=== PATIENT | female | born 1975 | race African-American/Black ===

== ENCOUNTER 2016-05-03 22:28 | Emergency (ER) | payer OTHER ==
[~2016-05-03] VITALS: Ht 162.6 cm; Wt 100.4 kg
[2016-05-03 22:55] LABS: HEMATOCRIT 41.3 % (36.0-46.0); MCH 30.7 PG (29.0-34.0); MCHC 33.4 G/DL (30.0-36.0); MCV 91.8 FL (83-99); MEAN PLAT.VOLUME 8.8 uM^3 (9.5-12.4); PLATELET COUNT 329 K/uL (156-360); RBC DIS.WIDTH-CV 13.1 % (11.8-14.6); RBC DIS.WIDTH-SD 44.1 % (39-53); WHITE BLOOD COUNT 9.2 K/uL (4.1-10.2)
[2016-05-03 23:03] LABS: CHLORIDE 104 mEq/L (99-109); POTASSIUM 2.6 mEq/L (3.7-5.4); SODIUM 142 mEq/L (136-147)
[2016-05-03 23:05] LABS: GLUCOSE 161 mg/dL (70-99)
[2016-05-03 23:06] LABS: ANION GAP 15 MEQ/L (2-14)
[2016-05-03 23:08] LABS: SERUM ETHYL ALCOHOL 459 mg/dL
[2016-05-03 23:10] LABS: UREA NITROGEN (BUN) 4 mg/dL (9-23)
[2016-05-03 23:17] LABS: QUANTITATIVE HCG < 4.0 MIU/ML
[2016-05-03 23:23] LABS: GFR ESTIMATE (CALCULATED) > 59 mL/min/
[2016-05-04 01:17] LABS: COCAINE NEGATIVE (150 ng/mL); METHAMPHETAMINE NEGATIVE (500 ng/mL); OPIATES (MORPHINE) PRESUMPTIVE POSITIVE (100 ng/mL); PHENCYCLIDINE NEGATIVE (25 ng/mL); THC CANNABINOIDS NEGATIVE (50 ng/mL)
[2016-05-04 01:18] LABS: ADD MEDTOX COMMENT Y; AMPHETAMINE PRESUMPTIVE POSITIVE (500 ng/mL); BARBITURATES NEGATIVE (200 ng/mL); BENZODIAZEPINES NEGATIVE (150 ng/mL); INTERNAL CONTROLS VALID? YES; METHADONE NEGATIVE (200 ng/mL); OXYCODONE NEGATIVE (100 ng/mL); PROPOXYPHENE NEGATIVE (300 ng/mL); TRICYCLIC ANTIDEPRESSANTS NEGATIVE (300 ng/mL)
[2016-05-04 04:19] LABS: AMPHETAMINES QUANT VALUE 0 NG/ML; OPIATES QUANTITATIVE VALUE 0 NG/ML
[2016-05-04 04:45] LABS: MAGNESIUM 1.9 mg/dL (1.3-2.7)
[2016-05-04] MEDS ORDERED: K-DUR20 MEQ PO (05:37)
[2016-05-04 05:51] VITALS: BP 127/70
== END 2016-05-04 05:53 | disposition left against medical advice (07) ==
LOC: EME → EDBD 22:28 → EME 05-04 05:53
PROVIDERS: Emergency Medicine
DX: M54.2 Cervicalgia (principal); V47.5XXA Car driver injured in collision with fixed or stationary object in traffic accident, initial encounter; F10.129 Alcohol abuse with intoxication, unspecified; E87.6 Hypokalemia; Y90.8 Blood alcohol level of 240 mg/100 ml or more; F17.200 Nicotine dependence, unspecified, uncomplicated
CPT/HCPCS: 70450; 72125; 80048; 83735; 84132; 84702; 84999; 85027; 99281; 99285; G0480; J3480; J7030